=== PATIENT | male | born 1955 | race Caucasian/White ===

== ENCOUNTER 2020-06-03 12:28 | Inpatient (IN) | payer OTHER ==
--- NOTE | 2020-06-03 13:00 | BHS.RME ---
Substance Use & Tx History - Substance Use History Heroin Substance amount: 5 bags Frequency of use: Daily Substance route: Inhalation (ex: sniffing or snorting) Date of Last Use: 06/02/20 (First use age 34 y. OD x 3, last was 5 years ago. Narcan at home) - Last Treatment Date of last treatment: 5 years ago Treatment type: Substance Use Disorder (BLANCA) Where was last treatment: Detox Physical/Psych/Mental Status - Behavior General Behavior: Increased activity (restlessness, agitation) Eye Contact: Normal - Cooperativeness Cooperativeness: Cooperative - Thinking Thought Processes: Tight Thought content: Future oriented - Physical Health Problems Is patient presently having any pain?: Yes (left sciatica, low back pain, cervical pain chronic) Does patient presently have any injuries (include location): No Does patient currently have a fever: No COWS - Scale Resting Pulse: 0= [place] 80 or Below Sweatin= Chills/Flushing Restless Observation: 1= Difficult to Sit Still Pupil Size: 0= Normal to Room Light Bone or Joint Aches: 1= Mild Discomfort Runny Nose/ Eye Tearin= Runny Nose/Eyes GI Upset > 30mins: 2= Nausea/Diarrhea Tremor Observation: 0= None Yawning Observation: 0= None Anxiety or Irritability: 1=Feels Anxious/Irritable Goose Flesh Skin: 0=Smooth Skin COWS Score: 8
--- NOTE | 2020-06-03 13:53 | HP ---
COWS - Scale Resting Pulse: 0= [place] 80 or Below Sweatin= Chills/Flushing Restless Observation: 1= Difficult to Sit Still Pupil Size: 0= Normal to Room Light Bone or Joint Aches: 1= Mild Discomfort Runny Nose/ Eye Tearin= Runny Nose/Eyes GI Upset > 30mins: 2= Nausea/Diarrhea Tremor Observation: 0= None Yawning Observation: 0= None Anxiety or Irritability: 1=Feels Anxious/Irritable Goose Flesh Skin: 0=Smooth Skin COWS Score: 8 CIWA Score - Admission Criteria OASAS Guidelines: Admission for Medically Managed Detox: Requires at least one of the followin. CIWA greater than 12 2. Seizures within the past 24 hours 3. Delirium tremens within the past 24 hours 4. Hallucinations within the past 24 hours 5. Acute intervention needed for co occurring medical disorder 6. Acute intervention needed for co occurring psychiatric disorder 7. Severe withdrawal that cannot be handled at a lower level of care (continued vomiting, continued diarrhea, abnormal vital signs) requiring intravenous medication and/or fluids 8. Admitting History and Physical - Admission Chief Complaint: " i have to stop using heroin." History of Present Illness: 64 year old male with history of opioid dependence with mild withdrawal, nicotine dependence This is his first admission here but was priorly at [facility] 5 years ago, relapsed 2 weeks ago. Heroin: 5 bags IN, started at age 34 and last used yesterday. He has overdosed 3 times and last one was 5 years ago and does have a narcan Nicotine: Quit 5 days ago Used to be on a methadone program but left [facility] PMH: HTN Psurg: None Psych: Depression, Remeron, last dose 6 years ago He is domiciled in his own place and has no legal issues. COWS=8 He meets criteria for detox as he is at high risk for relapse, he has medical and untreated psychiatric co-morbidity. History Source: Patient Limitations to Obtaining History: No Limitations - Past Medical History Cardiovascular: Yes: HTN Psych: Yes: Depression - Past Surgical History Past Surgical History: Yes: None - Smoking History Smoking history: Former smoker Have you smoked in the past 12 months: Yes - Alcohol/Substance Use Hx Alcohol Use: No - Social History Usual Living Arrangement: Yes: Alone Do you think of yourself as: Straight/Heterosexual ADL: Independent Occupation: unemployed Admission ROS S - HPI Allergies/Adverse Reactions: Allergies Allergy/AdvReac Type Severity Reaction Status Date / Time No Known Allergies Allergy Verified 06/03/20 13:37 Exam Limitations: No Limitations - Ebola screening Have you traveled outside of the country in the last 21 days: No Have you had contact with anyone from an Ebola affected area: No Have you been sick,other than usual withdrawal symptoms: No Do you have a fever: No - Review of Systems Constitutional: No Symptoms Reported EENT: reports: No Symptoms Reported Respiratory: reports: No Symptoms reported Cardiac: reports: No Symptoms Reported GI: reports: No Symptoms Reported : reports: No Symptoms Reported Musculoskeletal: reports: No Symptoms Reported Integumentary: reports: No Symptoms Reported Neuro: reports: No Symptoms reported Endocrine: reports: No Symptoms Reported Hematology: reports: No Symptoms Reported Psychiatric: reports: Judgement Intact, Mood/Affect Appropiate, Orientated x3, Agitated, Anxious Other Systems: Reviewed and Negative Patient History - Patient Medical History Hx Anemia: No Hx Asthma: No Hx Chronic Obstructive Pulmonary Disease (COPD): No Hx Cancer: No Hx Cardiac Disorders: No Hx Congestive Heart Failure: No Hx Hypertension: Yes Hx Hypercholesterolemia: No Hx Pacemaker: No HX Cerebrovascular Accident: No Hx Seizures: No Hx Dementia: No Hx Diabetes: No Hx Gastrointestinal Disorders: No Hx Liver Disease: No Hx Genitourinary Disorders: No Hx Sexually Transmitted Disorders: No Hx Renal Disease (ESRD): No Hx Thyroid Disease: No Hx Human Immunodeficiency Virus (HIV): No Hx Hepatitis C: No Hx Depression: Yes Hx Suicide Attempt: No Hx Bipolar Disorder: No Hx Schizophrenia: No - Patient Surgical History Past Surgical History: No - PPD History Previous Implant?: Yes Documented Results: Negative w/o proof Implanted On Prior [facility] Admission?: No PPD to be Administered?: Yes - Smoking Cessation Smoking history: Former smoker Have you smoked in the past 12 months: Yes If you are a former smoker, when did you quit?: 5 days ago Hx Chewing Tobacco Use: No Initiated information on smoking cessation: No - Substances abused Heroin Substance route: Inhalation Frequency: Daily Amount used: 5 bags Age of first use: 34 Date of last use: 06/02/20 Admission Physical Exam S - Physical General Appearance: Yes: No Apparent Distress, Nourished, Appropriately Dressed, Irritable, Sweating, Anxious HEENTM: Yes: EOMI, Hearing grossly Normal, Normal ENT Inspection, Normocephalic, Normal Voice, JOSE DE JESUS, Pharynx Normal, Tm's normal Respiratory: Yes: Chest Non-Tender, Lungs Clear, Normal Breath Sounds, No Respiratory Distress, No Accessory Muscle Use Neck: Yes: No masses,lesions,Nodules, Supple, Trachea in good position Breast: Yes: Within Normal Limits Cardiology: Yes: Regular Rhythm, Regular Rate, S1, S2 Abdominal: Yes: Normal Bowel Sounds, Non Tender, Flat, Soft Genitourinary: Yes: Within Normal Limits Back: Yes: Normal Inspection Musculoskeletal: Yes: full range of Motion, Gait Steady, Pelvis Stable Extremities: Yes: Normal Capillary Refill, Normal Inspection, Normal Range of Motion, Non-Tender Neurological: Yes: service aide II-XII NML intact, Fully Oriented, Alert, Motor Strength 5/5, Normal Mood/Affect, Normal Response Integumentary: Yes: Normal Color, Dry, Warm Lymphatic: Yes: Within Normal Limits - Diagnostic (1) Opioid dependence with withdrawal Current Visit: Yes Status: Acute (2) Hypertension Current Visit: Yes Status: Acute (3) Depression Current Visit: Yes Status: Acute Cleared for Admission S - Detox or Rehab [facility] Level of Care: Medically Managed Detox Regimen/Protocol: Methadone Claeared for Rehab Admission: No Screened but not Admitted - Documentation of Visit Screened but not Admitted: No Breathalyzer - Breathalyzer Breathalyzer: 0 Urine Drug Screen - Test Device Lot number: [id number] Expiration date: 07/12/21 - Control Is test valid?: Yes - Results Drug screen NEGATIVE: No Urine drug screen results: THC-Marijuana, FEN-Fentanyl, MOP-Opiates, MTD- Methadone Inpatient Rehab Admission - Rehab Decision to Admit Inpatient rehab admission?: No
[2020-06-03 13:56] VITALS: BMI 22.9
[2020-06-03] MEDS ORDERED: cloNIDine HCL 0.1 MG TABLET PO PRN (14:00)
[2020-06-03] MEDS ORDERED: hydrOXYzine PAMOATE 25 MG CAPSULE (FP) PO SCH (14:00)
[2020-06-03] MEDS ORDERED: MAG HYDROX/AL HYDROX/SIMETH 30 ML UNIT-DOSE CUP PO PRN (14:00)
[2020-06-03] MEDS ORDERED: NICOTINE POLACRILEX 2 MG GUM BUC PRN (14:00)
[2020-06-03] MEDS ORDERED: BISMUTH SUBSALICYLATE 524 MG/30 ML UD PO PRN (14:00)
[2020-06-03] MEDS ORDERED: ACETAMINOPHEN 325 MG TABLET (FP) PO PRN ×2 (14:00)
[2020-06-03] MEDS ORDERED: IBUPROFEN 400 MG TABLET (FP) PO PRN (14:00)
[2020-06-03] MEDS ORDERED: METHOCARBAMOL 500 MG TABLET PO PRN (14:00)
[2020-06-03] MEDS ORDERED: MENTHOL/PHENOL 1 EACH UD MM PRN (14:00)
[2020-06-03] MEDS ORDERED: MAGNESIUM CITRATE 300 ML BOTTLE PO PRN (14:00)
[2020-06-03] MEDS ORDERED: ONDANSETRON *ODT* 4 MG TABLET SL ONE (14:15)
[2020-06-03] MEDS ORDERED: METHADONE HCL 10 MG TABLET (FOR DETOX USE ONLY) PO ONE (14:30)
--- NOTE | 2020-06-03 14:51 | EKG ---
Test Reason : Blood Pressure : / mmHG Vent. Rate : 062 BPM Atrial Rate : 062 BPM P-R Int : 186 ms QRS Dur : 100 ms QT Int : 408 ms P-R-T Axes : 065 048 053 degrees QTc Int : 414 ms NORMAL SINUS RHYTHM NORMAL ECG NO PREVIOUS ECGS AVAILABLE Confirmed by CLAUDIO RENAE MD ([id number]) on 06/03/2020 2:51:28 PM Referred By: Confirmed By:CLAUDIO RENAE MD
[2020-06-03] MEDS ORDERED: diazePAM 5 MG TABLET PO PRN (14:57)
[2020-06-03] MEDS: NICOTINE 7 MG/24 HOURS TOPICAL PATCH TD SCH (15:08)
[2020-06-03] MEDS: hydrOXYzine PAMOATE 25 MG CAPSULE (FP) PO PRN (15:09)
[2020-06-03] MEDS: PRENATAL VITAMINS W/ FOLIC ACID TABLET (FP) PO SCH (15:09)
[2020-06-03 17:24] LABS: HEMATOCRIT 36.4 % (35.4-49); HEMOGLOBIN 12.5 GM/dL (11.7-16.9); MCH 32.2 pg (25.7-33.7); MCHC 34.4 g/dl (32.0-35.9); MEAN CELL VOLUME 93.6 fl (80-96); MEAN PLT VOLUME 7.7 fl (7.5-11.1); PLATELET COUNT 275 K/MM3 (134-434); RBC 3.89 M/mm3 (4.00-5.60); RDW 12.9 % (11.9-15.9); WHITE BLOOD COUNT 6.2 K/mm3 (4.0-10.0)
[2020-06-03 17:33] LABS: ALBUMIN 3.8 g/dl (3.4-5.0); BILIRUBIN,TOTAL 0.9 mg/dL (0.2-1); BLOOD UREA NITROGEN 22.2 mg/dL (7-18); CALCIUM 9.2 mg/dL (8.5-10.1); CREATININE 0.9 mg/dL (0.55-1.3); TOT PROT 7.5 g/dl (6.4-8.2)
[2020-06-03] MEDS: THIAMINE HCL 100 MG TABLET (FP) PO SCH (21:54)
[2020-06-03] MEDS: MELATONIN 5 MG TABLETS PO SCH (21:54)
--- NOTE | 2020-06-04 09:50 | CONSULT ---
[facility] Psychiatric Consult - Data Date of interview: 06/04/20 Identifying data: Mr Zamudio is a 64 years old male, domiciled seeking detox treatment for opioid Substance Abuse History: Reports history of heroin use. Refer to addiction counselor's summary for further information Psychiatric History: Patient was approached at bedside. Told publications writer:" I don't need to see a psychiatrist. I have not been taking that medication for over 5 years and depression is gone"
[2020-06-04] MEDS ORDERED: METHADONE HCL 5 MG TABLET (FOR DETOX USE ONLY) ONE (09:51)
[2020-06-04] MEDS ORDERED: METHADONE HCL 10 MG TABLET (FOR DETOX USE ONLY) ONE (09:52)
[2020-06-04] MEDS ORDERED: LISINOPRIL 10 MG TABLET (FP) PO SCH (10:00)
[2020-06-04] MEDS ORDERED: HYDROCHLOROTHIAZIDE 12.5 MG CAPSULE (FP) PO SCH (10:00)
[2020-06-04] MEDS ORDERED: METHADONE (DETOX) 20 MG, METHADONE (DETOX) 5 MG PO ONE (10:00)
[2020-06-04] MEDS: PATIENT'S OWN MEDICATION (NON-FORMULARY) (Lisinopril/Hydrochlorothiazide [Lisinopril-Hctz PO SCH (11:29)
[2020-06-04] MEDS: PRENATAL VITAMINS W/ FOLIC ACID TABLET (FP) PO SCH (11:29)
[2020-06-04] MEDS: NICOTINE 7 MG/24 HOURS TOPICAL PATCH TD SCH (11:32)
--- NOTE | 2020-06-04 12:24 | PN ---
BHS COWS - Scale Resting Pulse: 0= [place] 80 or Below Sweatin= Chills/Flushing Restless Observation: 1= Difficult to Sit Still Pupil Size: 0= Normal to Room Light Bone or Joint Aches: 1= Mild Discomfort Runny Nose/ Eye Tearin= Nasal Congestion GI Upset > 30mins: 0= None Tremor Observation of Outstretched Hands: 1= Tremor [place], Not Seen Yawning Observation: 0= None Anxiety or Irritability: 2=Irritable/Anxious Goose Flesh Skin: 0=Smooth Skin COWS Score: 7 BHS Progress Note (SOAP) Subjective: body aches sweats shakes restless interrupted sleep Objective: 06/04/20 12:21 Vital Signs Temperature 98.8 F 06/04/20 08:37 Pulse Rate 56 L 06/04/20 08:37 Respiratory Rate 18 06/04/20 08:37 Blood Pressure 112/76 06/04/20 08:37 O2 Sat by Pulse Oximetry (%) 100 06/04/20 08:37 Laboratory Tests 06/03/20 06/03/20 06/03/20 14:10 14:10 14:10 WBC 6.2 RBC 3.89 L Hgb 12.5 Hct 36.4 MCV 93.6 MCH 32.2 MCHC 34.4 RDW 12.9 Plt Count 275 MPV 7.7 Sodium 138 Potassium 4.0 Chloride 104 Carbon Dioxide 26 Anion Gap 8 BUN 22.2 H Creatinine 0.9 Est GFR (CKD-EPI)AfAm 102.79 Est GFR (CKD-EPI)NonAf 88.69 Random Glucose 107 H Calcium 9.2 Total Bilirubin 0.9 AST 14 L ALT 16 Alkaline Phosphatase 100 Total Protein 7.5 Albumin 3.8 Syphilis Serology HIV Ag/Ab Combo Qual Negative 06/03/20 14:10 WBC RBC Hgb Hct MCV MCH MCHC RDW Plt Count MPV Sodium Potassium Chloride Carbon Dioxide Anion Gap BUN Creatinine Est GFR (CKD-EPI)AfAm Est GFR (CKD-EPI)NonAf Random Glucose Calcium Total Bilirubin AST ALT Alkaline Phosphatase Total Protein Albumin Syphilis Serology Non-reactive HIV Ag/Ab Combo Qual labs noted; elevated BUN encourage fluids aaox3 ambulating no acute distress Assessment: 06/04/20 12:23 withdrawals Plan: continue detox increase fluids roboxin prn motrin prn
[2020-06-04] MEDS: THIAMINE HCL 100 MG TABLET (FP) PO SCH (22:27)
[2020-06-04] MEDS: MELATONIN 5 MG TABLETS PO SCH (22:27)
[2020-06-04] MEDS: hydrOXYzine PAMOATE 25 MG CAPSULE (FP) PO PRN (22:27)
[2020-06-05] MEDS ORDERED: METHADONE HCL 10 MG TABLET (FOR DETOX USE ONLY) PO ONE (10:00)
[2020-06-05] MEDS: PATIENT'S OWN MEDICATION (NON-FORMULARY) (Lisinopril/Hydrochlorothiazide [Lisinopril-Hctz PO SCH (10:37)
[2020-06-05] MEDS: NICOTINE 7 MG/24 HOURS TOPICAL PATCH TD SCH (10:38)
[2020-06-05] MEDS: PRENATAL VITAMINS W/ FOLIC ACID TABLET (FP) PO SCH (10:38)
[2020-06-05] MEDS: MAGNESIUM HYDROX 2400MG/30ML ORAL SUSPENSION 30 ML CUP PO PRN ×2 (11:40→21:13)
--- NOTE | 2020-06-05 14:18 | PN ---
S COWS - Scale Resting Pulse: 0= [place] 80 or Below Sweatin= No chills or Flushing Restless Observation: 0= Sits Still Pupil Size: 0= Normal to Room Light Bone or Joint Aches: 2= Severe Diffuse Aches Runny Nose/ Eye Tearin= Nasal Congestion GI Upset > 30mins: 0= None Tremor Observation of Outstretched Hands: 1= Tremor [place], Not Seen Yawning Observation: 0= None Anxiety or Irritability: 2=Irritable/Anxious Goose Flesh Skin: 0=Smooth Skin COWS Score: 6 S Progress Note (SOAP) Subjective: Complaints of anxiety, sweats,shakes, and joint aches. Objective: 06/05/20 14:15 Vital Signs 06/05/20 06/05/20 06/05/20 06:20 08:50 12:41 Temperature 98.4 F 97.5 F L 97.3 F L Pulse Rate 53 L 56 L 64 Respiratory 16 16 18 Rate Blood Pressure 111/68 118/67 104/69 O2 Sat by Pulse 98 98 97 Oximetry (%) Laboratory Last Values WBC 6.2 K/mm3 (4.0-10.0) 06/03/20 14:10 RBC 3.89 M/mm3 (4.00-5.60) L 06/03/20 14:10 Hgb 12.5 GM/dL (11.7-16.9) 06/03/20 14:10 Hct 36.4 % (35.4-49) 06/03/20 14:10 MCV 93.6 fl (80-96) 06/03/20 14:10 MCH 32.2 pg (25.7-33.7) 06/03/20 14:10 MCHC 34.4 g/dl (32.0-35.9) 06/03/20 14:10 RDW 12.9 % (11.9-15.9) 06/03/20 14:10 Plt Count 275 K/MM3 (134-434) 06/03/20 14:10 MPV 7.7 fl (7.5-11.1) 06/03/20 14:10 Sodium 138 mmol/L (136-145) 06/03/20 14:10 Potassium 4.0 mmol/L (3.5-5.1) 06/03/20 14:10 Chloride 104 mmol/L (98-107) 06/03/20 14:10 Carbon Dioxide 26 mmol/L (21-32) 06/03/20 14:10 Anion Gap 8 MMOL/L (8-16) 06/03/20 14:10 BUN 22.2 mg/dL (7-18) H 06/03/20 14:10 Creatinine 0.9 mg/dL (0.55-1.3) 06/03/20 14:10 Est GFR (CKD-EPI)AfAm 102.79 06/03/20 14:10 Est GFR (CKD-EPI)NonAf 88.69 06/03/20 14:10 Random Glucose 107 mg/dL (74-106) H 06/03/20 14:10 Calcium 9.2 mg/dL (8.5-10.1) 06/03/20 14:10 Total Bilirubin 0.9 mg/dL (0.2-1) 06/03/20 14:10 AST 14 U/L (15-37) L 06/03/20 14:10 ALT 16 U/L (13-61) 06/03/20 14:10 Alkaline Phosphatase 100 U/L (45-117) 06/03/20 14:10 Total Protein 7.5 g/dl (6.4-8.2) 06/03/20 14:10 Albumin 3.8 g/dl (3.4-5.0) 06/03/20 14:10 Syphilis Serology Non-reactive (NONREACTIVE) 06/03/20 14:10 COVID-19 (JACK) Not detected (Not Detected) 06/03/20 14:30 HIV Ag/Ab Combo Qual Negative (NEGATIVE) 06/03/20 14:10 Labs noted with elevated BUN. Assessment: 06/05/20 14:16 Alert and oriented x3, in no acute respiratory distress. Decreased ROM, ambulatory with cane Withdrawal symptoms. Elevated BUN Plan: Continue detox protocol. Repeat BMP in AM.
[2020-06-05] MEDS: hydrOXYzine PAMOATE 25 MG CAPSULE (FP) PO PRN (21:11)
[2020-06-05] MEDS: MELATONIN 5 MG TABLETS PO SCH (21:11)
[2020-06-05] MEDS: THIAMINE HCL 100 MG TABLET (FP) PO SCH (21:11)
[2020-06-06] MEDS ORDERED: METHADONE HCL 5 MG TABLET (FOR DETOX USE ONLY) ONE (08:58)
[2020-06-06] MEDS ORDERED: METHADONE HCL 10 MG TABLET (FOR DETOX USE ONLY) ONE (08:58)
[2020-06-06] MEDS ORDERED: METHADONE (DETOX) 10 MG, METHADONE (DETOX) 5 MG PO ONE (10:00)
[2020-06-06] MEDS: NICOTINE 7 MG/24 HOURS TOPICAL PATCH TD SCH (10:19)
[2020-06-06] MEDS: PATIENT'S OWN MEDICATION (NON-FORMULARY) (Lisinopril/Hydrochlorothiazide [Lisinopril-Hctz PO SCH (10:19)
[2020-06-06] MEDS: PRENATAL VITAMINS W/ FOLIC ACID TABLET (FP) PO SCH (10:19)
[2020-06-06 10:29] LABS: CALCIUM 8.7 mg/dL (8.5-10.1); CREATININE 0.7 mg/dL (0.55-1.3); POTASSIUM 4.2 mmol/L (3.5-5.1)
--- NOTE | 2020-06-06 15:30 | PN ---
BHS COWS - Scale Resting Pulse: 0= [place] 80 or Below Sweatin= No chills or Flushing Restless Observation: 0= Sits Still Pupil Size: 0= Normal to Room Light Bone or Joint Aches: 0= None Runny Nose/ Eye Tearin= None GI Upset > 30mins: 1= Stomach Cramp Tremor Observation of Outstretched Hands: 2= Slight Tremor Visible Yawning Observation: 0= None Anxiety or Irritability: 2=Irritable/Anxious Goose Flesh Skin: 0=Smooth Skin COWS Score: 5 BHS Progress Note (SOAP) Subjective: Anxious, irritable Objective: 06/06/20 15:27 Last Vital Signs Temp Pulse Resp BP Pulse Ox 97.6 F 66 19 114/63 97 06/06/20 12:44 06/06/20 12:44 06/06/20 12:44 06/06/20 12:44 06/06/20 12:44 Laboratory Tests 06/03/20 06/03/20 06/03/20 14:10 14:10 14:10 WBC 6.2 RBC 3.89 L Hgb 12.5 Hct 36.4 MCV 93.6 MCH 32.2 MCHC 34.4 RDW 12.9 Plt Count 275 MPV 7.7 Sodium 138 Potassium 4.0 Chloride 104 Carbon Dioxide 26 Anion Gap 8 BUN 22.2 H Creatinine 0.9 Est GFR (CKD-EPI)AfAm 102.79 Est GFR (CKD-EPI)NonAf 88.69 Random Glucose 107 H Calcium 9.2 Total Bilirubin 0.9 AST 14 L ALT 16 Alkaline Phosphatase 100 Total Protein 7.5 Albumin 3.8 Syphilis Serology COVID-19 (JACK) HIV Ag/Ab Combo Qual Negative 06/03/20 06/03/20 06/06/20 14:10 14:30 06:45 WBC RBC Hgb Hct MCV MCH MCHC RDW Plt Count MPV Sodium 140 Potassium 4.2 Chloride 106 Carbon Dioxide 31 Anion Gap 2 L BUN 19.0 H Creatinine 0.7 Est GFR (CKD-EPI)AfAm 113.98 Est GFR (CKD-EPI)NonAf 98.34 Random Glucose 88 Calcium 8.7 Total Bilirubin AST ALT Alkaline Phosphatase Total Protein Albumin Syphilis Serology Non-reactive COVID-19 (JACK) Not detected HIV Ag/Ab Combo Qual Labs reviewed: bun (high, trending downward) Assessment: 07/26/20 15:28 Withdrawal sxs Noted with azotemia Plan: Continue detox Encourage PO water intake Azotemia: improved, encourage to drink more water
[2020-06-06] MEDS: hydrOXYzine PAMOATE 25 MG CAPSULE (FP) PO PRN (21:57)
[2020-06-06] MEDS: MELATONIN 5 MG TABLETS PO SCH (21:57)
[2020-06-06] MEDS: THIAMINE HCL 100 MG TABLET (FP) PO SCH (21:57)
[2020-06-07] MEDS ORDERED: METHADONE HCL 10 MG TABLET (FOR DETOX USE ONLY) PO ONE (10:00)
[2020-06-07] MEDS: PATIENT'S OWN MEDICATION (NON-FORMULARY) (Lisinopril/Hydrochlorothiazide [Lisinopril-Hctz PO SCH (10:52)
[2020-06-07] MEDS: NICOTINE 7 MG/24 HOURS TOPICAL PATCH TD SCH (10:53)
[2020-06-07] MEDS: PRENATAL VITAMINS W/ FOLIC ACID TABLET (FP) PO SCH (10:53)
[2020-06-07] MEDS: MAGNESIUM HYDROX 2400MG/30ML ORAL SUSPENSION 30 ML CUP PO PRN (10:54)
--- NOTE | 2020-06-07 12:00 | PN ---
BHS COWS - Scale Resting Pulse: 0= [place] 80 or Below Sweatin= No chills or Flushing Restless Observation: 1= Difficult to Sit Still Pupil Size: 0= Normal to Room Light Bone or Joint Aches: 0= None Runny Nose/ Eye Tearin= None GI Upset > 30mins: 0= None Tremor Observation of Outstretched Hands: 0= None Yawning Observation: 0= None Anxiety or Irritability: 1=Feels Anxious/Irritable Goose Flesh Skin: 0=Smooth Skin COWS Score: 2 BHS Progress Note (SOAP) Subjective: feeling good little anxiety Objective: 06/07/20 11:59 Vital Signs Temperature 97.5 F L 06/07/20 08:37 Pulse Rate 56 L 06/07/20 08:37 Respiratory Rate 18 06/07/20 08:37 Blood Pressure 115/72 06/07/20 08:37 O2 Sat by Pulse Oximetry (%) 95 06/07/20 05:44 aaox3 ambulating no acute distress Assessment: 06/07/20 11:59 mild withdrawals Plan: continue detox d/c in am
[2020-06-07] MEDS ORDERED: MASKS NR ONE (20:28)
[2020-06-07] MEDS: MELATONIN 5 MG TABLETS PO SCH (22:58)
[2020-06-07] MEDS: THIAMINE HCL 100 MG TABLET (FP) PO SCH (22:58)
[2020-06-08] MEDS ORDERED: METHADONE HCL 5 MG TABLET (FOR DETOX USE ONLY) PO ONE (06:00)
[2020-06-08 06:45] VITALS: BP 100/61; PULSE 51; TEMP 97.8
[2020-06-08] MEDS: NICOTINE 7 MG/24 HOURS TOPICAL PATCH TD SCH (09:03)
[2020-06-08] MEDS: PATIENT'S OWN MEDICATION (NON-FORMULARY) (Lisinopril/Hydrochlorothiazide [Lisinopril-Hctz PO SCH (09:03)
[2020-06-08] MEDS: PRENATAL VITAMINS W/ FOLIC ACID TABLET (FP) PO SCH (09:03)
--- NOTE | 2020-06-08 10:07 | DS ---
[facility] Detox Discharge Summary Admission Date: 06/03/20 Discharge Date: 06/08/20 - History Present History: Opioid Dependence - Physical Exam Results Vital Signs: Vital Signs Temperature 97.8 F 06/08/20 05:44 Pulse Rate 51 L 06/08/20 05:44 Respiratory Rate 18 06/08/20 05:44 Blood Pressure 100/61 06/08/20 05:44 O2 Sat by Pulse Oximetry (%) 94 L 06/08/20 05:44 Pertinent Admission Physical Exam Findings: Vital Signs Temperature 97.8 F 06/08/20 05:44 Pulse Rate 51 L 06/08/20 05:44 Respiratory Rate 18 06/08/20 05:44 Blood Pressure 100/61 06/08/20 05:44 O2 Sat by Pulse Oximetry (%) 94 L 06/08/20 05:44 Laboratory Tests 06/03/20 06/03/20 06/03/20 14:10 14:10 14:10 WBC 6.2 RBC 3.89 L Hgb 12.5 Hct 36.4 MCV 93.6 MCH 32.2 MCHC 34.4 RDW 12.9 Plt Count 275 MPV 7.7 Sodium 138 Potassium 4.0 Chloride 104 Carbon Dioxide 26 Anion Gap 8 BUN 22.2 H Creatinine 0.9 Est GFR (CKD-EPI)AfAm 102.79 Est GFR (CKD-EPI)NonAf 88.69 Random Glucose 107 H Calcium 9.2 Total Bilirubin 0.9 AST 14 L ALT 16 Alkaline Phosphatase 100 Total Protein 7.5 Albumin 3.8 Syphilis Serology COVID-19 (JACK) HIV Ag/Ab Combo Qual Negative 06/03/20 06/03/20 06/06/20 14:10 14:30 06:45 WBC RBC Hgb Hct MCV MCH MCHC RDW Plt Count MPV Sodium 140 Potassium 4.2 Chloride 106 Carbon Dioxide 31 Anion Gap 2 L BUN 19.0 H Creatinine 0.7 Est GFR (CKD-EPI)AfAm 113.98 Est GFR (CKD-EPI)NonAf 98.34 Random Glucose 88 Calcium 8.7 Total Bilirubin AST ALT Alkaline Phosphatase Total Protein Albumin Syphilis Serology Non-reactive COVID-19 (JACK) Not detected HIV Ag/Ab Combo Qual aaox3 ambulating no acute distress lungs CTA - Treatment Hospital Course: Detox Protocol Followed, Detoxed Safely, Responded well, Discharged Condition Good, Rehab Referral Accepted - Medication Discharge Medications: Ambulatory Orders Lisinopril/Hydrochlorothiazide [Lisinopril-Hctz 10-12.5 mg Tab] 1 each PO DAILY 06/03/20 - Diagnosis (1) Depression Status: Acute (2) Hypertension Status: Chronic Qualifiers: Hypertension type: essential hypertension Qualified Code(s): I10 - Essential (primary) hypertension (3) Opioid dependence with withdrawal Status: Chronic - AMA Did Patient Leave Against Medical Advice: No
== END 2020-06-08 09:08 | disposition home or self-care (01) | DRG 897 ==
LOC: YASAS 12:28 → Y6N 14:06
PROVIDERS: ADMIT Allergy & Immunology; ATTEND Allergy & Immunology
PROC: HZ2ZZZZ Detoxification Services for Substance Abuse Treatment (ICD-10-PCS; principal; 2020-06-03)
DX: F11.23 Opioid dependence with withdrawal (principal); F17.211 Nicotine dependence, cigarettes, in remission; F32.9 Major depressive disorder, single episode, unspecified; I10 Essential (primary) hypertension; R79.89 Other specified abnormal findings of blood chemistry
CPT/HCPCS: 36415; 80048; 80053; 85027; 86780; 87389; 93005; 93010; Q0162; U0003

== ENCOUNTER 2024-04-12 13:01 | Inpatient (IN) | payer OTHER ==
[2024-04-12 14:26] VITALS: BMI 22.6
[2024-04-12] MEDS ORDERED: NALOXONE HCL 0.4 MG/ML VIAL IM PRN (15:50)
[2024-04-12] MEDS ORDERED: BENZOCAINE/MENTHOL (CHLORASEPTIC ) LOZENGE MM PRN (15:50)
[2024-04-12] MEDS ORDERED: MAG HYDROX/AL HYDROX/SIMETH 30 ML UNIT-DOSE CUP PO PRN (15:50)
[2024-04-12] MEDS ORDERED: ONDANSETRON *ODT* 4 MG TABLET SL PRN (15:50)
[2024-04-12] MEDS ORDERED: POLYETHYLENE GLYCOL (HEALTHYLAX) 3350 17 GM PACKET PO PRN (15:50)
[2024-04-12] MEDS ORDERED: LOPERAMIDE HCL 2 MG CAPSULE PO PRN (15:50)
[2024-04-12] MEDS ORDERED: hydrOXYzine PAMOATE 25 MG CAPSULE (FP) PO PRN (15:50)
[2024-04-12] MEDS ORDERED: IBUPROFEN 600 MG TABLET (FP) PO PRN (15:50)
[2024-04-12] MEDS ORDERED: guaiFENesin 600 MG TABLET.ER (FP) PO PRN (15:50)
[2024-04-12] MEDS ORDERED: IBUPROFEN 400 MG TABLET (FP) PO PRN (15:50)
[2024-04-12] MEDS ORDERED: NALOXONE HCL (KLOXXADO) 8 MG SPRAY NS PRN (15:50)
[2024-04-12] MEDS ORDERED: DICYCLOMINE HCL 10 MG CAPSULE PO PRN (15:50)
[2024-04-12] MEDS ORDERED: NICOTINE POLACRILEX 2 MG GUM BUC PRN (15:50)
[2024-04-12] MEDS ORDERED: ACETAMINOPHEN 325 MG TABLET (FP) PO PRN (15:50)
[2024-04-12] MEDS ORDERED: BENZONATATE 200 MG CAPSULE PO PRN (15:50)
[2024-04-12] MEDS ORDERED: MAGNESIUM HYDROX 2400MG/30ML ORAL SUSPENSION 30 ML CUP PO PRN (15:50)
[2024-04-12] MEDS ORDERED: METHOCARBAMOL 500 MG TABLET PO PRN (15:50)
[2024-04-12] MEDS ORDERED: BISMUTH SUBSALICYLATE 524 MG/30 ML PO PRN (15:50)
[2024-04-12] MEDS ORDERED: methaDONE HCL 10 MG TABLET (FOR DETOX USE ONLY) ONE (16:31)
[2024-04-12] MEDS: methaDONE HCL 10 MG TABLET (FOR DETOX USE ONLY) PO ONE (16:34)
[2024-04-12] MEDS: MELATONIN 5 MG TABLETS PO SCH (23:06)
[2024-04-12] MEDS: THIAMINE 100 MG TABLET PO SCH (23:06)
[2024-04-13] MEDS: PRENATAL VITAMINS W/ FOLIC ACID TABLET (FP) PO SCH (09:54)
[2024-04-13] MEDS: LISINOPRIL 5 MG TABLET PO SCH (09:56)
[2024-04-13] MEDS ORDERED: LISINOPRIL 5 MG TABLET PO SCH (11:02)
[2024-04-13 12:00] LABS: HEMATOCRIT 34.2 % (35.4-49); HEMOGLOBIN 12.1 GM/dL (11.7-16.9); MCH 32.6 pg (25.7-33.7); MCHC 35.2 g/dl (32.0-35.9); MEAN CELL VOLUME 92.6 fl (80-96); MEAN PLT VOLUME 7.2 fl (7.5-11.1); PLATELET COUNT 351 10^3/uL (134-434); RDW 14.4 % (11.9-15.9); WHITE BLOOD COUNT 6.3 K/mm3 (4.0-10.0)
[2024-04-13 12:11] LABS: CHLORIDE 102 mmol/L (98-107); POTASSIUM 4.3 mmol/L (3.5-5.1); SODIUM 134 mmol/L (136-145)
[2024-04-13 12:18] LABS: ALBUMIN 3.5 g/dl (3.4-5.0); ANION GAP 4 mmol/L (4-13); BLOOD UREA NITROGEN 20.9 mg/dL (7-18); CALCIUM 9.1 mg/dL (8.5-10.1); CO2 28 mmol/L (21-32); GLUCOSE,RANDOM 117 mg/dL (74-106)
[2024-04-13 12:21] LABS: CREATININE 0.9 mg/dL (0.55-1.3); SGOT/AST 17 U/L (15-37)
[2024-04-13 12:22] LABS: SGPT/ALT 16 U/L (13-61); TOT PROT 6.8 g/dl (6.4-8.2)
[2024-04-13 12:23] LABS: BILIRUBIN,TOTAL 0.7 mg/dL (0.2-1)
[2024-04-13 12:25] LABS: ALK PHOS 103 U/L (45-117)
[2024-04-14] MEDS: cloNIDine HCL 0.1 MG TABLET PO PRN (01:29)
[2024-04-14 09:18] VITALS: BP 110/74; PULSE 64; RESP 17; TEMP 98.6
[2024-04-14] MEDS: LISINOPRIL 5 MG TABLET PO SCH (10:26)
[2024-04-14] MEDS: methaDONE HCL 10 MG TABLET (FOR DETOX USE ONLY) PO ONE (10:26)
[2024-04-16] MEDS ORDERED: methaDONE HCL 10 MG TABLET (FOR DETOX USE ONLY) PO ONE (10:00)
== END 2024-04-14 10:30 | disposition home or self-care (01) | DRG 897 ==
LOC: YASAS 13:01 → Y6N 16:31
PROVIDERS: ADMIT Allergy & Immunology; ATTEND Surgery
PROC: HZ2ZZZZ Detoxification Services for Substance Abuse Treatment (ICD-10-PCS; principal; 2024-04-12)
DX: F11.23 Opioid dependence with withdrawal (principal); F12.20 Cannabis dependence, uncomplicated; F17.210 Nicotine dependence, cigarettes, uncomplicated; F32.A Depression, unspecified; I10 Essential (primary) hypertension
CPT/HCPCS: 36415; 80053; 80305; 80307; 85027; 86780; 93005; 93010